=== PATIENT | male | born 1960 | race Caucasian/White ===

== ENCOUNTER 2022-06-03 05:47 | Day surgery (SDC) | payer MEDICAID ==
[2022-06-03] MEDS ORDERED: Lactated Ringers 1,000 ML IV SCH (07:00)
[2022-06-03] MEDS ORDERED: Propofol 200 MG/20 ML SDV ONE (07:19)
[2022-06-03] MEDS ORDERED: fentaNYL 50 MCG/ML SDV ONE (07:19)
[2022-06-03] MEDS ORDERED: Midazolam 1 MG/ML 2 ML SDV ONE (07:19)
== END 2022-06-03 09:00 | disposition home or self-care (01) ==
LOC: JP.SDS 05:47
PROVIDERS: ATTEND Family Medicine
DX: Z12.11 Encounter for screening for malignant neoplasm of colon (principal); D12.2 Benign neoplasm of ascending colon; E66.9 Obesity, unspecified; F17.220 Nicotine dependence, chewing tobacco, uncomplicated; Z68.32 Body mass index [BMI] 32.0-32.9, adult; Z86.010 Personal history of colon polyps; Z80.0 Family history of malignant neoplasm of digestive organs; Z79.899 Other long term (current) drug therapy
CPT/HCPCS: 45380; J2250; J2704; J3010; J7120

== ENCOUNTER 2022-12-02 05:34 | Day surgery (SDC) | payer MEDICAID ==
[2022-12-02] MEDS ORDERED: Bupivacaine 0.5% 50 ML MDV ONE (06:42)
[2022-12-02] MEDS ORDERED: Bacitracin Oint 1 GM U/D Packet ONE (06:42)
[2022-12-02] MEDS ORDERED: Lidocaine 1% with EPINEPHrine 1:100,000 50 ML MDV ONE (06:42)
[2022-12-02 06:51] LABS: HEMATOCRIT 43.7 % (38.4-49.7); HEMOGLOBIN 15.1 g/dL (12.9-16.9); MEAN CORPUSCULAR HEMOGLOBIN 30.3 pg (31.6-35.5); MEAN CORPUSCULAR HGB CONC 34.6 g/dL (31.6-35.5); MEAN CORPUSCULAR VOLUME 87.8 fL (81.4-99.0); RED BLOOD CELL COUNT 4.98 M/uL (4.14-5.76); WHITE BLOOD CELL COUNT,WBC 5.7 K/uL (3.2-11.0)
[2022-12-02] MEDS ORDERED: Midazolam 1 MG/ML 2 ML SDV ONE (07:00)
[2022-12-02] MEDS ORDERED: fentaNYL 100 MCG/2 ML SDV ONE (07:00)
[2022-12-02] MEDS ORDERED: Dextrose 5%-Lactated Ringers 1,000 ML IV SCH (07:00)
[2022-12-02] MEDS ORDERED: Propofol 200 MG/20 ML SDV ONE (07:00)
[2022-12-02 07:10] LABS: ALANINE AMINOTRANSFERASE,ALT 39 U/L (12-78); ALBUMIN 3.3 g/dL (3.4-5.0); ALKALINE PHOSPHATASE 70 U/L (46-116); ASPARTATE AMNIOTRANSFERASE,AST 20 U/L (15-37); BILIRUBIN TOTAL 0.4 mg/dL (0.2-1.0); BLOOD UREA NITROGEN,BUN 10 mg/dL (7-18); CALCIUM 8.5 mg/dL (8.5-10.1); CARBON DIOXIDE,CO2 30 mmol/L (21-32); CHLORIDE,CL 105 mmol/L (100-108); CREATININE 1.1 mg/dL (0.8-1.3); EST CRCL DRUG DOSING (CG) 72.82 mL/min; ESTIMATED GFR 76 mL/min (>60); GLUCOSE RANDOM 138 mg/dL (74-106); POTASSIUM,K 4.4 mmol/L (3.6-5.2); PROTEIN TOTAL,TP 6.7 g/dL (6.4-8.2); SODIUM,NA 139 mmol/L (140-148)
[2022-12-02] MEDS ORDERED: Rocuronium 50 MG/5 ML Vial ONE (07:11)
[2022-12-02] MEDS ORDERED: Ondansetron 4 MG/2 ML SDV ONE (07:11)
[2022-12-02] MEDS ORDERED: Glycopyrrolate 0.2 MG/ML 5 ML MDV ONE (07:11)
[2022-12-02] MEDS ORDERED: Dexamethasone 4 MG/ML SDV ONE (07:11)
[2022-12-02] MEDS ORDERED: Neostigmine Methylsulfate 1 MG/ML 5 ML Syringe ONE (07:11)
[2022-12-02] MEDS ORDERED: Succinylcholine 200 MG/10 ML MDV ONE (07:11)
[2022-12-02 07:12] LABS: ANION GAP 8.4 mmol/L (5.0-14.0)
[2022-12-02] MEDS ORDERED: fentaNYL 250 MCG/5 ML SDV ONE (07:13)
[2022-12-02] MEDS ORDERED: ceFAZolin 1 GM Vial ONE (08:02)
== END 2022-12-02 11:03 | disposition home or self-care (01) ==
LOC: JP.SDS 05:34
PROVIDERS: ATTEND Surgery
DX: D17.9 Benign lipomatous neoplasm, unspecified (principal); E78.00 Pure hypercholesterolemia, unspecified; I10 Essential (primary) hypertension; F17.220 Nicotine dependence, chewing tobacco, uncomplicated; E66.9 Obesity, unspecified; Z68.32 Body mass index [BMI] 32.0-32.9, adult; Z79.899 Other long term (current) drug therapy
CPT/HCPCS: 21933; 36415; 80053; 85027; 88307; 88341; 88342; J0131; J0330; J0690; J1100; J2405; J2704; J2710; J3010; J3490; J7121; J2250